=== PATIENT | male | born 1990 | race Two or more races ===

== ENCOUNTER 2017-09-19 21:25 | Emergency (ER) | payer SELFPAY ==
[~2017-09-19] VITALS: Ht 175.3 cm; Wt 88.5 kg
[2017-09-19 21:30] VITALS: BP 132/62
== END 2017-09-19 22:28 | disposition home or self-care (01) ==
LOC: ER 21:27
DX: S01.112A Laceration without foreign body of left eyelid and periocular area, initial encounter (principal); W21.89XA Striking against or struck by other sports equipment, initial encounter; Y93.43 Activity, gymnastics; Y92.89 Other specified places as the place of occurrence of the external cause; Y99.8 Other external cause status
CPT/HCPCS: A4606; Z7610

== ENCOUNTER 2023-05-28 20:14 | Inpatient (IN) | payer BC, OTHER ==
[~2023-05-28] VITALS: Ht 175.3 cm; Wt 105.7 kg
[2023-05-28] MEDS ORDERED: CEFEPIME 1 GM VIAL ONE (21:20)
[2023-05-28] MEDS: IV NS 0.9% 1,000 ML BAG IV ONE (21:40)
[2023-05-28] MEDS: CEFEPIME 1 GM in IV D5W 50 ML IV ONE (21:40)
[2023-05-28] MEDS ORDERED: ACETAMINOPHEN ES 500 MG TABLET ONE (21:42)
[2023-05-28] MEDS: ACETAMINOPHEN ES 500 MG TABLET PO ONE (21:45)
[2023-05-28] MEDS ORDERED: VANCOMYCIN 1 GM /D5W 250 ML PB IV ONE (21:47)
[2023-05-28 22:10] LABS: APPEARANCE,URINE CLEAR (CLEAR); BILIRUBIN,URINE 1+ (NEGATIVE); BLOOD, URINE 3+ Ery/uL (NEGATIVE); COLOR,URINE YELLOW (YELLOW); KETONES,URINE TRACE mg/dL (NEGATIVE); LEUKOCYTE ESTERASE ,URINE NEGATIVE (NEGATIVE); NITRITE, URINE POSITIVE (NEGATIVE); PROTEIN,URINE 2+ mg/dl (NEGATIVE); UGLUCOSE 2+ mg/dL (NEGATIVE); UROBILINOGEN,URINE 0.2 EU/dL (0.2)
[2023-05-28 22:19] LABS: ADD URINE CULTURE YES; BACTERIA,URINE 2+ /HPF (None Seen); MUCUS,URINE Few /LPF (None Seen); RBC,URINE 51-80 /HPF (0-2)
[2023-05-28 22:19] LABS: BASOPHILS # (AUTO) 0.1 K/uL (0.0-0.2); BASOPHILS % (AUTO) 0.4 % (0.0-2.0); EOSINOPHILS % (AUTO) 0.1 % (0.0-6.0); HEMATOCRIT 38 % (39-51); HEMOGLOBIN 12.8 g/dL (13.5-17.5); LYMPHOCYTES # (AUTO) 7.7 K/uL (0.8-4.8); LYMPHOCYTES % (AUTO) 27.7 % (20.0-44.0); MEAN CORPUSCULAR HEMOGLOBIN 30 PG (26.0-33.0); MEAN CORPUSCULAR HGB CONC 34 g/dl (31.0-36.0); MEAN CORPUSCULAR VOLUME 87 fL (80-96); MONOCYTES # (AUTO) 3.1 K/uL (0.1-1.30); MONOCYTES % (AUTO) 11.1 % (2.0-12.0); NEUTROPHILS % (AUTO) 60.7 % (43.0-81.0); PLATELET COUNT (AUTO) 246 K/uL (150-450); RED BLOOD CELL COUNT(AUTO) 4.32 MIL/uL (4.5-6.0); RED CELL DISTRIBUTION WIDTH 13.1 % (11.5-15.0)
[2023-05-28 22:25] LABS: INR 1.14 (0.91-1.10); PARTIAL THROMBOPLASTIN TIME 30.4 SEC (24.3-34.3)
[2023-05-28] MEDS: VANCOMYCIN 1 GM in IV D5W 250 ML IV ONE (22:30)
[2023-05-28 22:31] LABS: ALANINE AMINOTRANSFERASE 88 U/L (12-78); ALBUMIN 2.7 g/dL (3.4-5.0); ALKALINE PHOSPHATASE 109 U/L (46-116); ASPARTATE AMINOTRANSFERASE 43 U/L (15-37); BILIRUBIN,DIRECT 0.2 mg/dL (0.0-0.2); BILIRUBIN,TOTAL 0.5 mg/dL (0.2-1.0); CARBON DIOXIDE 29 mmol/L (21-32); CHLORIDE 90 mmol/L (98-107); CREATININE 1.1 mg/dL (0.6-1.3); GLUCOSE 266 mg/dL (74-106); POTASSIUM 3.6 mmol/L (3.5-5.1); SODIUM SERUM 125 mmol/L (136-145); TOTAL PROTEIN, SERUM 8.5 g/dL (6.4-8.2); UREA NITROGEN, BLOOD 14 mg/dL (7-18)
[2023-05-28 22:35] LABS: LACTIC ACID 1.6 mmol/L (0.4-2.0)
[2023-05-28 23:55] LABS: ANISOCYTOSIS 1+; BASOPHILS % (MANUAL) 0 % (0.0-2.0); EOSINOPHILS % (MANUAL) 0 % (0-4); LYMPHOCYTES % (MANUAL) 25 % (16-48); MONOCYTES % (MANUAL) 13 % (0-11.0); NEUTROPHILS % (MANUAL) 62 (42-76); PLATELET ESTIMATE ADEQUATE; STOMATOCYTES 1+
[2023-05-29 02:00] VITALS: BP 156/70; TEMP 102.4; O2SAT 94
[2023-05-29] MEDS ORDERED: METRONIDAZOLE 500MG/ NS 100ML 100 ML IV ONE (02:19)
[2023-05-29] MEDS: IV NS 0.9% 1,000 ML IV SCH (02:59)
[2023-05-29] MEDS: METRONIDAZOLE 500MG/ NS 100ML 500 MG in PREMIX 1 EA IV SCH (03:01)
[2023-05-29] MEDS ORDERED: CEFEPIME 1 GM VIAL ONE (04:41)
[2023-05-29 05:00] VITALS: BP 153/85; TEMP 101.1; O2SAT 97
[2023-05-29] MEDS: CEFEPIME 1 GM in IV D5W 50 ML IV SCH (05:07)
[2023-05-29] MEDS: ACETAMINOPHEN 325 MG TABLET PO PRN (05:07)
[2023-05-29 08:00] VITALS: BP 135/91; TEMP 99.7; O2SAT 96
[2023-05-29] MEDS ORDERED: DEXT10TA7 PO (08:34)
[2023-05-29] MEDS ORDERED: LISD70CA PO (08:34)
[2023-05-29] MEDS ORDERED: PROP120C2 PO (08:34)
[2023-05-29] MEDS ORDERED: PROP40TA7 PO (08:34)
[2023-05-29] MEDS: HEPARIN SODIUM, PORCINE 5000 UNITS/1 ML VIAL SQ SCH (09:48)
[2023-05-29] MEDS: IV NS 0.9% 1,000 ML IV PRN (09:49)
[2023-05-29] MEDS: VANCOMYCIN HCL 1.25 GM in IV D5W 250 ML IV SCH (09:49)
[2023-05-29] MEDS ORDERED: METRONIDAZOLE 500MG/ NS 100ML 500 MG in PREMIX 1 EA IV SCH (11:00)
[2023-05-29 11:20] LABS: CALCIUM, SERUM 8.3 mg/dL (8.5-10.1); CREATININE 1.2 mg/dL (0.6-1.3); POTASSIUM 3.3 mmol/L (3.5-5.1)
[2023-05-29 12:00] VITALS: BP 145/65; TEMP 100.7; O2SAT 93
[2023-05-29] MEDS ORDERED: IBUPROFEN SUSP 100 MG/5 ML UDC PO PRN (12:15)
[2023-05-29 12:17] LABS: ABG BASE EXCESS 1.3 mmol/L; ABG OXYGEN SATURATION 88.9 % (92.0-98.5); ABG PCO2 32.5 mmHg (35.0-45.0); ABG PH 7.487 (7.350-7.450); ABG PO2 51.9 mmHg (75.0-100.0); ABG TOTAL HEMOGLOBIN 13.7 G/dL (13.5-18.0); AaDO2 167.1 mmHg; COHb 0.9 % (0.5-1.5); MetHb 0.2 % (0.0-1.5); O2Hb 87.9 % (94.0-97.0); SITE, ABG Right Radial; VENT MODE, BG 4L NC
[2023-05-29] MEDS: METRONIDAZOLE 500 MG TABLET PO SCH (12:25)
[2023-05-29] MEDS ORDERED: IBUPROFEN SUSP 100 MG/5 ML UDC-SA PATIENTS-FEVER ONLY PO PRN (12:30)
[2023-05-29] MEDS: CEFEPIME 2 GM in IV D5W 100 ML IV SCH (13:05)
[2023-05-29] MEDS: IBUPROFEN 600 MG TABLET PO PRN (13:05)
[2023-05-29] MEDS ORDERED: IOHEXOL-300 100 ML VIAL IV ONE (14:31)
[2023-05-29] MEDS ORDERED: CT SWABBABLE VALVE TRANS SET 1 EA INFUS.SET MC ONE (14:31)
[2023-05-29] MEDS ORDERED: IV NS 0.9% 250 ML IV ONE (14:31)
[2023-05-29 20:00] VITALS: BP 139/80; TEMP 99; O2SAT 98
[2023-05-29 20:03] LABS: BASOPHILS % (AUTO) 0.2 % (0.0-2.0); EOSINOPHILS % (AUTO) 0.1 % (0.0-6.0); HEMATOCRIT 40 % (39-51); HEMOGLOBIN 13.4 g/dL (13.5-17.5); LYMPHOCYTES # (AUTO) 4.7 K/uL (0.8-4.8); LYMPHOCYTES % (AUTO) 19.6 % (20.0-44.0); MEAN CORPUSCULAR HEMOGLOBIN 29 PG (26.0-33.0); MEAN CORPUSCULAR HGB CONC 34 g/dl (31.0-36.0); MEAN CORPUSCULAR VOLUME 87 fL (80-96); MONOCYTES # (AUTO) 2.6 K/uL (0.1-1.30); NEUTROPHILS # (AUTO) 16.5 K/uL (1.8-8.9); NEUTROPHILS % (AUTO) 69.1 % (43.0-81.0); PLATELET COUNT (AUTO) 216 K/uL (150-450); RED BLOOD CELL COUNT(AUTO) 4.55 MIL/uL (4.5-6.0); RED CELL DISTRIBUTION WIDTH 12.9 % (11.5-15.0); WHITE BLOOD COUNT (AUTO) 23.9 K/uL (4.3-11.0)
[2023-05-29] MEDS: POTASSIUM CHLORIDE 20 MEQ TAB.PRT.SR PO ONE (20:14)
[2023-05-29 23:41] VITALS: BP 135/74; TEMP 101; O2SAT 98
[2023-05-29 23:41] LABS: ANISOCYTOSIS 1+; BASOPHILS % (MANUAL) 0 % (0.0-2.0); EOSINOPHILS % (MANUAL) 0 % (0-4); LYMPHOCYTES % (MANUAL) 15 % (16-48); MONOCYTES % (MANUAL) 12 % (0-11.0); NEUTROPHILS % (MANUAL) 73 (42-76); PLATELET ESTIMATE ADEQUATE; STOMATOCYTES 1+
[2023-05-30] VITALS: BP 135/74; TEMP 101; O2SAT 98
[2023-05-30 04:00] VITALS: BP 134/63; TEMP 98.9; O2SAT 98
[2023-05-30 07:09] LABS: BASOPHILS % (AUTO) 0.2 % (0.0-2.0); EOSINOPHILS # (AUTO) 0.1 K/uL (0.0-0.7); EOSINOPHILS % (AUTO) 0.3 % (0.0-6.0); HEMATOCRIT 42 % (39-51); HEMOGLOBIN 14.2 g/dL (13.5-17.5); LYMPHOCYTES # (AUTO) 5.5 K/uL (0.8-4.8); LYMPHOCYTES % (AUTO) 25.4 % (20.0-44.0); MEAN CORPUSCULAR HEMOGLOBIN 30 PG (26.0-33.0); MEAN CORPUSCULAR HGB CONC 33 g/dl (31.0-36.0); MEAN CORPUSCULAR VOLUME 90 fL (80-96); MONOCYTES # (AUTO) 2.8 K/uL (0.1-1.30); NEUTROPHILS # (AUTO) 13.3 K/uL (1.8-8.9); NEUTROPHILS % (AUTO) 61.1 % (43.0-81.0); PLATELET COUNT (AUTO) 189 K/uL (150-450); RED BLOOD CELL COUNT(AUTO) 4.74 MIL/uL (4.5-6.0); RED CELL DISTRIBUTION WIDTH 13.5 % (11.5-15.0); WHITE BLOOD COUNT (AUTO) 21.7 K/uL (4.3-11.0)
[2023-05-30 07:59] LABS: ALBUMIN 1.8 g/dL (3.4-5.0); BILIRUBIN,TOTAL 0.4 mg/dL (0.2-1.0); CALCIUM, SERUM 8.5 mg/dL (8.5-10.1); CREATININE 0.9 mg/dL (0.6-1.3); MAGNESIUM 2.2 mg/dL (1.8-2.4); PHOSPHORUS 1.8 mg/dL (2.5-4.9); POTASSIUM 3.4 mmol/L (3.5-5.1); TOTAL PROTEIN, SERUM 6.8 g/dL (6.4-8.2)
[2023-05-30 08:00] VITALS: BP 125/95; TEMP 99.3; O2SAT 99
[2023-05-30 09:02] LABS: THYROID STIMULATING HORMONE 2.352 uIU/mL (0.358-3.74); URIC ACID 2.4 mg/dL (2.6-7.2)
[2023-05-30] MEDS: POTASSIUM CHLORIDE 20 MEQ TAB.PRT.SR PO ONE (10:16)
[2023-05-30] MEDS: MORPHINE SULFATE INJ 2 MG/ML DISP.SYRIN IV PRN (10:19)
[2023-05-30 12:00] VITALS: BP 122/70; TEMP 98.4; O2SAT 99
[2023-05-30] MEDS: ONDANSETRON HCL/PF 4 MG/2 ML VIAL IVP PRN (14:45)
[2023-05-30] MEDS: HYDROCODONE/APAP 10/325MG TABLET PO PRN (14:46)
[2023-05-30] MEDS ORDERED: KETOROLAC TROMETHAMINE INJ 30 MG/ML VIAL IV ONE (15:00)
[2023-05-30] MEDS ORDERED: KETOROLAC TROMETHAMINE 15 MG/ML VIAL IV ONE (15:00)
[2023-05-30] MEDS ORDERED: MORPHINE SULFATE INJ 4 MG/ML DISP.SYRIN IV PRN (15:00)
[2023-05-30] MEDS ORDERED: K PHOS NEUTRAL 250 MG TABLET PO ONE (15:30)
== END 2023-05-30 15:32 | disposition left against medical advice (07) | DRG 871 ==
LOC: ER 20:16 → TELE 05-29 01:08 → TELE-TD 05-29 15:41 → TELE1 05-30 11:39
PROVIDERS: ADMIT Nurse Practitioner Acute Care; ATTEND Nurse Practitioner Acute Care
DX: A41.9 Sepsis, unspecified organism (principal); J15.9 Unspecified bacterial pneumonia; J96.01 Acute respiratory failure with hypoxia; H70.002 Acute mastoiditis without complications, left ear; E22.2 Syndrome of inappropriate secretion of antidiuretic hormone; K50.90 Crohn's disease, unspecified, without complications; D64.9 Anemia, unspecified; E87.6 Hypokalemia; E66.9 Obesity, unspecified; F17.210 Nicotine dependence, cigarettes, uncomplicated; F41.9 Anxiety disorder, unspecified; F90.9 Attention-deficit hyperactivity disorder, unspecified type; Z90.49 Acquired absence of other specified parts of digestive tract; E86.9 Volume depletion, unspecified; R74.01 Elevation of levels of liver transaminase levels; R73.9 Hyperglycemia, unspecified; Z20.822 Contact with and (suspected) exposure to COVID-19; Z68.34 Body mass index [BMI] 34.0-34.9, adult; H60.92 Unspecified otitis externa, left ear; J32.8 Other chronic sinusitis
CPT/HCPCS: 36415; 36600; 70470-TC; 70487-TC; 71045-TC; 80048-TC; 80053-TC; 80076-TC; 81001; 83605-TC; 83735-TC; 84100-TC; 84443-TC; 84484-TC; 84550-TC; 85025-TC; 85730-TC; 86738; 87040-TC; 87086-TC; 94799-TC; A4216; A4223; G0378; J0692; J1644; J2270; J2405; J3370; J3490; J7030; J7050; J7060; Q9967